=== PATIENT | female | born 1980 | race Caucasian/White ===

== ENCOUNTER 2019-11-26 13:13 | Emergency (ER) | payer MEDICAID, OTHER | END 2019-11-26 13:49 | disposition left against medical advice (07) | LOC: ER 13:13 | DX: Z53.20 Procedure and treatment not carried out because of patient's decision for unspecified reasons (principal) ==

== ENCOUNTER 2019-12-03 16:38 | Emergency (ER) | payer MEDICAID, OTHER ==
--- NOTE | 2019-12-03 18:11 | Emergency Department Record ---
History of Present Illness - General Chief complaint: Female Urogenital Problem Stated complaint: CONSTIPATED Time Seen by Provider: 12/03/19 18:02 Source: Patient Mode of Arrival: Ambulatory Limitations: No limitations - History of Present Illness Initial comments: The patient is here due to worsening of her chronic pelvic pain. She states she has been having vague abdominal cramping and bloating for a few days. She also is feeling like she is having difficulty urinating at times. There has been no fever, back pain, vomiting, diarrhea, or dysuria. The patient has had mild nausea at times and just feels she is unable to eat due to the bloating. She has had a CHINEDU in the past per the patient. MD Complaint: Pelvic pain, Other Onset/Timin -: Days(s) Severity: Moderate Worsens with: Other (eating.) - Related Data Allergies Allergy/AdvReac Type Severity Reaction Status Date / Time shellfish derived Allergy Severe ANAPHYLAXIS Verified 12/03/19 18:10 hyoscyamine sulfate Allergy Intermediate headache/vo Verified 12/03/19 18:10 [From Levsin] miting ibuprofen [From Motrin] Allergy NAUSEA AND Verified 12/03/19 18:10 VOMITING ketorolac [From Toradol] Allergy ANAPHYLAXIS Verified 12/03/19 18:10 Penicillins Allergy PT UNSURE Verified 12/03/19 18:10 OF REACTION prochlorperazine AdvReac NAUSEA AND Verified 12/03/19 18:10 [From Compazine] VOMITING Review of Systems Constitutional: Denies: Chills, Fever Eyes: Denies: Eye discharge ENT: Denies: Congestion Respiratory: Denies: Cough, Dyspnea Cardiovascular: Denies: Chest pain Endocrine: Denies: Fatigue Gastrointestinal: Reports: Constipation. Denies: Diarrhea, Vomiting Genitourinary: Denies: Dysuria Musculoskeletal: Denies: Arthralgia Skin: Denies: Bruising Past Medical History - SOCIAL HISTORY Smoking Status: Never smoker Drug Use: None - RESPIRATORY Hx Respiratory Disorders: No - CARDIOVASCULAR Hx Cardio Disorders: No - NEURO Hx Neuro Disorders: No - GI Hx GI Disorders: No - Hx Genitourinary Disorders: Yes Hx Kidney Stones: Yes - ENDOCRINE Hx Endocrine Disorders: No - PSYCH Hx Psych Problems: No - HEMATOLOGY/ONCOLOGY Hx Hematology/Oncology Disorders: No Physical Exam - General General Appearance: Alert, Oriented x3, Cooperative, No acute distress - Head Head exam: Atraumatic, Normocephalic, Normal inspection - Eye Eye exam: Normal appearance, PERRL - Neck Neck exam: Normal inspection, Full ROM. negative: Tenderness - Respiratory Respiratory exam: Normal lung sounds bilaterally. negative: Respiratory distress - Cardiovascular Cardiovascular Exam: Regular rate, Normal rhythm, Normal heart sounds - GI/Abdominal GI/Abdominal exam: Soft, Normal bowel sounds. negative: Rebound, Rigid, Tenderness - Extremities Extremities exam: Normal inspection, Full ROM, Normal capillary refill. negative: Tenderness - Back Back exam: Reports: Normal inspection. Denies: Vertebral tenderness - Neurological Neurological exam: Alert, Normal gait. negative: Abnormal gait, Motor sensory deficit - Psychiatric Psychiatric exam: negative: Anxious Course - Reevaluation(s) Reevaluation #1: I did review last months chart and her many ED visits in [place] in the past. The patient appears very comfortable and has no abdominal tenderness on exam and has normal lab tests. I did ask what pain medicine her doctor used to give her for this pain and she stated the only thing that works is [place]. I did explain to her with a witness in the room that I do not give narcotics for chronic pain syndromes. The patient understands this and will see her PCP for further e valuation. 12/03/19 18:47 Medical Decision Making - Data Complexity MDM Data: Labs Ordered and/or Reviewed - Lab Data Result diagrams: 12/03/19 18:15 12/03/19 18:15 Disposition Disposition: Discharge Clinical Impression: Chronic abdominal pain Disposition: Home, Self-Care Condition: (2) Stable Instructions: Chronic Abdominal Pain (ED) Additional Instructions: Please see your family doctor or [facility] doctor for further evaluation. Return to the ER for any worsening issues. Forms: Patient Portal Access Time of Disposition: 18:51 Quality - Quality Measures Quality Measures: N/A - Blood Pressure Screening View Details: Yes Does Patient Have Any of the Following: No Blood Pressure Classification: Hypertensive Reading Systolic Measurement: 148 Diastolic Measurement: 102 Screening for High Blood Pressure: < First Hypertensive BP, F/U Documented > [G8950] First Hypertensive Follow-up Interventions: Referral to alternative/primary care provider.
[2019-12-03 18:23] LABS: URINE APPEARANCE CLEAR; URINE BILIRUBIN NEGATIVE (NEGATIVE); URINE BLOOD NEGATIVE (NEGATIVE); URINE COLOR YELLOW; URINE GLUCOSE (UA) NEGATIVE (NEGATIVE); URINE KETONE NEGATIVE (NEGATIVE); URINE LEUKOCYTE ESTERASE NEGATIVE (NEGATIVE); URINE NITRITE NEGATIVE (NEGATIVE); URINE PROTEIN NEGATIVE (NEGATIVE); URINE UROBILINOGEN 0.2 E.U./dL (0.20 - 1.00)
[2019-12-03 18:24] LABS: ABSOLUTE NEUTROPHIL COUNT 5.35; BASO % 0.1 % (0-6); EOS % 2.2 % (0-6); GRAN % 66.3 % (47-80); HEMATOCRIT 40.5 % (35.0-47.0); HEMOGLOBIN 12.7 gm/dl (11.6-16.0); LYMPH % 24.8 % (16-45); MEAN CELL VOLUME 95.1 fl (81-97); MEAN CORPUSCULAR HEMOGLOBIN 29.8 pg (27-33); MEAN CORPUSCULAR HGB CONC 31.4 g/dl (32-36); MONO % 6.6 % (0-9); PLATELET COUNT 310 K/uL (130-400); RED BLOOD COUNT 4.26 M/uL (3.80-5.40); RED CELL DISTRIBUTION WIDTH 13.6 % (11.5-14.5); WHITE BLOOD COUNT W/O DIFF 8.1 K/uL (4.2-12.2)
[2019-12-03 18:36] LABS: BLOOD UREA NITROGEN 16 mg/dL (6-20); CREATININE 0.5 mg/dL (0.5-0.9); EST GLOMERULAR FILTRATION RATE > 60 mL/min
[2019-12-03 18:37] LABS: LIPASE 37 U/L (13-60)
[2019-12-03 18:39] LABS: GLUCOSE,RANDOM 123 mg/dL (74-109)
[2019-12-03 18:41] LABS: ALB/GLOB RATIO 1.4 (1.1-1.8); ALBUMIN 4.7 g/dL (4.0-5.0); ALKALINE PHOSPHATASE 101 U/L (35-104); ALT/SGPT 20 U/L (<33); AST/SGOT 17 U/L (10.0-35.0)
== END 2019-12-03 19:01 | disposition home or self-care (01) ==
LOC: ER 16:38
DX: R10.30 Lower abdominal pain, unspecified (principal); G89.29 Other chronic pain; R14.0 Abdominal distension (gaseous); R11.0 Nausea
CPT/HCPCS: 80053; 81003; 83690; 85025; 99283

== ENCOUNTER 2019-12-11 20:42 | Emergency (ER) | payer MEDICAID ==
[2019-12-11] MEDS ORDERED: ACETAMINOPHEN 500 MG TABLET PO ONE (20:48)
--- NOTE | 2019-12-11 21:00 | Emergency Department Record ---
History of Present Illness - General Chief complaint: Extremity Problem Stated complaint: WRIST INJURY Time Seen by Provider: 12/11/19 20:44 Source: Patient Mode of Arrival: Ambulatory Limitations: No limitations - History of Present Illness Initial comments: 39 yo female presents to ED for evaluation of right wrist pain symptoms following a work related injury that occurred approximately 2 hours ago. Patient reports that a patient "sat on my wrist" resulting in pain symptoms. Patient denies taking anything for her pain symptoms prior to arrival, but does report recent ORIF of the right wrist for previous fracture. Patient denies other injury on examination. MD Complaint: Joint pain Onset/Timin -: Hour(s) Location: Right, Other History of Same: Yes Severity scale (1-10): 8 Quality: Aching Consistency: Constant Improves with: Nothing Worsens with: Exertion, Palpation Associated Symptoms: Denies other symptoms - Related Data Allergies Allergy/AdvReac Type Severity Reaction Status Date / Time shellfish derived Allergy Severe ANAPHYLAXIS Verified 12/11/19 20:48 hyoscyamine sulfate Allergy Intermediate headache/vo Verified 12/11/19 20:48 [From Levsin] miting ibuprofen [From Motrin] Allergy NAUSEA AND Verified 12/11/19 20:48 VOMITING ketorolac [From Toradol] Allergy ANAPHYLAXIS Verified 12/11/19 20:48 Penicillins Allergy PT UNSURE Verified 12/11/19 20:48 OF REACTION prochlorperazine AdvReac NAUSEA AND Verified 12/11/19 20:48 [From Compazine] VOMITING Travel/Exposure Screening - Travel/Exposure Within Last 30 Days Have you traveled within the last 30 days?: No - Travel/Exposure Within Last Year Have you traveled outside the [place] in the last year?: No - Additonal Travel/Exposure Details Have you been exposed to anyone with a communicable illness?: No - Travel Symptoms Symptom Screening: None Review of Systems Constitutional: Denies: Chills, Fever, Malaise, Night sweats Eyes: Denies: Eye discharge, Eye pain ENT: Denies: Congestion, Ear pain, Epistaxis Respiratory: Denies: Cough, Dyspnea Cardiovascular: Denies: Chest pain, Dyspnea on exertion Endocrine: Denies: Fatigue, Heat or cold intolerance Gastrointestinal: Denies: Abdominal pain, Nausea, Vomiting Genitourinary: Denies: Incontinence, Retention Musculoskeletal: Reports: Arthralgia. Denies: Back pain, Gout, Joint swelling Skin: Denies: Bruising, Change in color Neurological: Denies: Abnormal gait, Confusion, Headache, Seizure Psychiatric: Denies: Anxiety Hematological/Lymphatic: Denies: Anemia, Blood Clots Past Medical History - SOCIAL HISTORY Smoking Status: Never smoker Alcohol Use: None Drug Use: None - RESPIRATORY Hx Respiratory Disorders: No - CARDIOVASCULAR Hx Cardio Disorders: No - NEURO Hx Neuro Disorders: No - GI Hx GI Disorders: Yes Hx Reflux: Yes Hx Irritable Bowel: Yes - Hx Genitourinary Disorders: Yes Hx Kidney Stones: Yes - ENDOCRINE Hx Endocrine Disorders: No - MUSCULOSKELETAL Hx Musculoskeletal Disorders: No - PSYCH Hx Psych Problems: No - HEMATOLOGY/ONCOLOGY Hx Hematology/Oncology Disorders: No Family Medical History Any Significant Family History?: No Physical Exam - General General Appearance: Alert, Oriented x3, Cooperative, Mild distress, Anxious Limitations: No limitations - Head Head exam: Atraumatic, Normocephalic, Normal inspection Head exam detail: negative: Abrasion, Contusion, Guillen's sign, General tenderness, Hematoma, Laceration - Eye Eye exam: Normal appearance. negative: Conjunctival injection, Periorbital swelling, Periorbital tenderness, Scleral icterus - ENT Ear exam: negative: Auricular hematoma, Auricular trauma Nasal Exam: negative: Active bleeding, Discharge, Dried blood, Foreign body Mouth exam: negative: Drooling, Laceration, Muffled voice, Tongue elevation - Neck Neck exam: Normal inspection. negative: Meningismus, Tenderness - Respiratory Respiratory exam: Normal lung sounds bilaterally. negative: Rales, Respiratory distress, Rhonchi, Stridor - Cardiovascular Cardiovascular Exam: Regular rate, Normal rhythm, Normal heart sounds Peripheral Pulses: 3+: Radial (R) - Rectal Rectal exam: Deferred - exam: Deferred - Extremities Extremities exam: Tenderness (TTP along the distal right radial forearm, minimal STS, strong distal radial pulse, FROM actively of the fingers distally on examination. No deformity is noted on examination.). negative: Calf tenderness, Pedal edema - Back Back exam: Denies: CVA tenderness (R), CVA tenderness (L) - Neurological Neurological exam: Alert, Normal gait, Oriented X3 - Psychiatric Psychiatric exam: Anxious - Skin Skin exam: Normal color. negative: Abrasion Type of lesion: negative: abrasion Course Vital Signs 02/14/20 20:46 Temperature 99 F Pulse Rate [ 81 Pulse Ox Probe] Respiratory 24 Rate Blood Pressure 163/115 [Left Arm] Pulse Ox 98 - Reevaluation(s) Reevaluation #1: 12/11/19 21:15 Right Wrist: Unremarkable post-operative right wrist Patient was updated on her radiograph findings Patient's symptoms appear c/w probable contusion. Recommend symptomatic care with ice, Tylenol as needed. Patient appears stable for discharge at this time. Disposition Disposition: Discharge Clinical Impression: Contusion of right wrist Qualifiers: Encounter type: initial encounter Qualified Code(s): S60.211A - Contusion of right wrist, initial encounter Disposition: Home, Self-Care Condition: (2) Stable Instructions: Contusion in Adults (ED) Additional Instructions: Return to ED if your symptoms worsen or if you have any concerns. Tylenol as directed. Follow-up with your family doctor in 3-5 days as directed. Forms: Patient Portal Access Time of Disposition: 21:17 Quality - Quality Measures Quality Measures: N/A - Blood Pressure Screening Does Patient Have Any of the Following: No Blood Pressure Classification: Hypertensive Reading Systolic Measurement: 163 Diastolic Measurement: 115 Screening for High Blood Pressure: < First Hypertensive BP, F/U Documented > [G8950] First Hypertensive Follow-up Interventions: Referral to alternative/primary care provider.
--- NOTE | 2019-12-11 21:15 | RADIOLOGY REPORT ---
EXAMINATION: Right Wrist Complete, Minimum Three Views EXAM DATE: 12/11/2019 9:11 PM TECHNIQUE: PA, lateral, and oblique INDICATION: work injury COMPARISON: None ENCOUNTER: Initial FINDINGS: The patient has previously undergone surgical repair of both the scaphoid and the radial styloid. Juan Alberto dware appears intact. Alignment is preserved. No acute fracture or dislocation is seen IMPRESSION: Unremarkable postoperative right wrist Dictated by: Faraz Leonard MD on 12/11/2019 9:12 PM. .
== END 2019-12-11 21:23 | disposition home or self-care (01) ==
LOC: ER 20:42
DX: S60.211A Contusion of right wrist, initial encounter (principal); W50.0XXA Accidental hit or strike by another person, initial encounter; Y93.F2 Activity, caregiving, lifting; Y92.129 Unspecified place in nursing home as the place of occurrence of the external cause; Y99.0 Civilian activity done for income or pay
CPT/HCPCS: 99283